=== PATIENT | female | born 1950 | race Asian ===

== ENCOUNTER 2019-08-11 19:07 | Emergency (ER) | payer OTHER ==
[~2019-08-11] VITALS: Ht 177.8 cm; Wt 101.2 kg
[2019-08-11 19:42] LABS: PLATELET COUNT 255 K/uL (152-353)
[2019-08-11 19:47] LABS: POTASSIUM 3.9 mmol/L (3.6-5.2)
[2019-08-11] MEDS ORDERED: CLON0.5T36 PO (23:55)
[2019-08-11] MEDS ORDERED: CLOZAPINE PO (23:59)
[2019-08-12] MEDS ORDERED: DAILY-VITE1 TAB PO (00:01)
[2019-08-12] MEDS ORDERED: DIVA125C PO (00:04)
[2019-08-12] MEDS ORDERED: METO-837 PO (00:06)
[2019-08-12] MEDS ORDERED: POLYETHYLENE GL1 PO1 PO (00:11)
[2019-08-12] MEDS ORDERED: RISP1TAB PO (00:12)
[2019-08-12] MEDS ORDERED: DOCU100C10 PO (00:13)
[2019-08-12] MEDS ORDERED: CLOZAPINE ODT100 MG PO (00:15)
== END 2019-08-11 22:11 | disposition other institution (70) ==
LOC: ED 19:07
PROVIDERS: Family Medicine
DX: R46.89 Other symptoms and signs involving appearance and behavior (principal); F20.89 Other schizophrenia; N39.0 Urinary tract infection, site not specified; Z03.818 Encounter for observation for suspected exposure to other biological agents ruled out; Z04.6 Encounter for general psychiatric examination, requested by authority
CPT/HCPCS: 36415; 80053; 81000; 85027; 87077; 87086; 87088; 87186; 87635; 93005; 96372; 99283; 99285; J1200; J1630; J3486; U0002